=== PATIENT | female | born 1995 | race Caucasian/White ===

== ENCOUNTER 2017-03-08 06:12 | Emergency (ER) | payer SELFPAY ==
[~2017-03-08] VITALS: Ht 165.1 cm; Wt 118.5 kg
[~2017-03-08 06:12] MED LIST: FLEXERIL10 MG PO; FLUOXETINE HCL20 MG PO; MOTRIN800 MG PO; NAPROSYN500 MG PO; NORCO 7.5/321 TABLET PO; TRAMADOL HCL50 MG PO; VALIUM5 MG PO
[2017-03-08] MEDS ORDERED: NAPROSYN500 MG PO (06:58)
[2017-03-08] MEDS ORDERED: ROBAXIN750 MG PO (06:58)
[2017-03-08 07:49] VITALS: BP 101/57
== END 2017-03-08 07:53 | disposition home or self-care (01) ==
LOC: EME 06:12
DX: M54.41 Lumbago with sciatica, right side (principal); I25.10 Atherosclerotic heart disease of native coronary artery without angina pectoris; F32.9 Major depressive disorder, single episode, unspecified; F41.9 Anxiety disorder, unspecified
CPT/HCPCS: 99281; 99283